=== PATIENT | female | born 1970 | race Caucasian/White ===

== ENCOUNTER → 2017-06-03 13:26 | Outpatient (CLI) | payer BC, SELFPAY | PROVIDERS: Family Provider Nurse Practitioner Family; PCP Nurse Practitioner Family; Visit Provider Nurse Practitioner Family | DX: G47.30 Sleep apnea, unspecified (principal); R09.02 Hypoxemia | CPT/HCPCS: 95811 ==

== ENCOUNTER 2020-05-30 05:58 | Emergency (ER) | payer BC, SELFPAY ==
[2020-05-30 06:08] VITALS: BP 169/91; PULSE 90; RESP 16; TEMP 35.8; O2SAT 100; BMI 42.0
[2020-05-30] MEDS: Ketorolac 15 MG/ML Vial IV (06:14)
[2020-05-30] MEDS: Ondansetron 4 MG/2 ML Vial IV (06:14)
[2020-05-30] MEDS: LORazepam 2 MG/ML Syringe 1 MG IV (06:17)
[2020-05-30] MEDS: Morphine 4 MG/ML Syringe IV (06:46)
--- NOTE | 2020-05-30 07:18 | ED.DCSUM_ITS ---
History of Present Illness Chief Complaint: Other, Pain/Inj Detail of Chief Complaint: Neck pain Informant: Patient Onset: Weeks - Approximately 1 week Context: Sudden Onset Timing: Continuous Quality: Pain Location: Posterior neck greater on right Current Severity: Moderate Maximum Severity: Severe Worsened by: Attempt to move head to right or left or flexion Relieved by: Nothing Associated Symptoms: No radicular pain, headache or paresthesias. Narrative: Patient 49-year-old woman who presents with bilateral posterior neck pain that started proxy 1 week ago. She states she may have slept in an odd position. Sh e has attempted ice, heat, anti-inflammatory with no relief. She reports movement of her head causes pain. She denies cardiac symptoms. She denies respiratory symptoms. There is no history of trauma. There is no neurovascular symptoms of the upper extremity. Prior similar symptoms: No Recent Illness/Hospitalization: No - Past Medical History (1) No significant past medical history Status: Acute Past Medical History - Allergies and Home Meds Allergies/Adverse Reactions: Allergies Penicillins Allergy (Verified 05/30/20 05:59) Other Primary Care Physician: Ankita Rosario [employer] TECHNICIAN, [employer] TECHNICIAN-C [Primary Care Provider] - Prior records reviewed: Yes Surgical History: noncontributory Lives: With Family Smoking Status: Heavy Smoker (>10/day) Drugs: None Review of Systems General: Denies: Chills, Fever, Malaise, Subjective, Sweats Eyes: Denies: Visual changes - bilaterally, Blurred Vision - bilaterally ENT: Denies: Bilateral ear pain, Rhinorrhea, Sore throat Cardiovascular: Denies: Chest pain, Palpitations Respiratory: Denies: Dyspnea, Cough, Dyspnea on exertion, Orthopnea, Paroxysmal nocturnal dyspnea Gastrointestinal: Denies: Nausea, Vomiting Musculoskeletal: Reports: Neck pain. Denies: Myalgias, Arthralgias, Back pain, Swelling, Extremity Pain Skin: Denies: Rash, Wounds Neurological: Denies: Headache, Weakness, Parasthesia, Numbness Hematologic: Denies: Easy bruising, Easy bleeding Physical Exam Vital Signs/Narrative: Vital Signs Temp Pulse Resp BP Pulse Ox 05/30/20 06:08 96.4 F L 90 16 169/91 H 100 Inital Vital Signs reviewed: Yes General: Well nourished, Well developed, Obese, Acute Distress - Appears uncomfortable. She walks looking straight ahead with limited head movement Head: Normocephalic, Atraumatic. Negative for: Trauma, Tenderness Eyes: Perrl, EOMI. Negative for: Pale conjunctiva, Scleral icterus ENT: No rhinorrhea, TM's clear Neck: Supple, No lymphadenopathy, No JVD, - - Pain to palpation posteriorly right greater than left. Having patient flex against any type of resistance or rotation causes her significant discomfort.. Negative for: Nontender Cardiovascular: Regular rate, Regular rhythm, No murmurs, Normal S1, Normal S2 Respiratory: No distress, CTA bilaterally Extremities: Nontender, No edema, - - Axillary, median, radial and ulnar function intact. Biceps, brachialis and triceps reflexes are 1-2+ and symmetric. 5/5 strength. Skin: Normal color, No rash, No Trauma. Negative for: Cyanosis, Diaphoresis, Jaundice Neurological: Alert, Oriented x3, Cranial nerves II-XII grossly intact, Normal Strength, Normal Sensation, Normal DTR, Normal Gait Psychological: Normal affect Diagnostic/Tx/Re-eval - Medical Decision Making Patient has torticollis. Patient declined morphine that was initially ordered. She also received 4 mg of Zofran and 50 mg of Toradol. She was agreeable to Ativan. She declined the morphine because she is never had morphine and concerned she will have an allergic reaction. Patient was informed 1 never has allergic reaction to exposure to the first time. Patient was reassessed at 0650 she reports little to no improvement. She is now willing to receive the 4 mg of morphine. Patient was reassessed at 0722. She reports marked improvement. Pain has decreased from a 9 to a 3. She states the pain is slightly worse when she coughs. Plan is to discharge with appropriate pain medicine and muscle re laxant. ED Disposition - Plan for ED Patient: Disposition: Home or Assisted Living Diagnosis: Torticollis, acute Instructions: Torticollis (Wry Neck) Prescriptions: Hydrocodone Bitart/Apap 5-325 [[place] 5MG-325MG] 1 tablet PO Q6H PRN PRN 3 Days #10 tablet PRN Reason: Pain Transmission Status: Received by [id number] Diazepam [Valium] 2 mg PO TID #10 tablet Transmission Status: Received by [id number] Referrals: Ankita Rosario NP, [employer] TECHNICIAN-C [Primary Care Provider] - 3-5 Days if not improving
[2020-05-30 08:08] VITALS: BP 129/66; PULSE 70; RESP 16; O2SAT 100
--- NOTE | 2020-05-30 08:09 | ED.RN ---
REVIEWED D/C INSTRUCTIONS, FOLLOW UP CARE, PRESCRIPTIONS, AND S/S THAT WOULD WARRANT A RETURN TO THE ED WITH PT. PT VERBALIZED AN UNDERSTANDING AND DENIES FURTHER QUESTIONS FOR THIS RN. PT SKIN P/W/D, RESP EVEN AND UNLABORED, PT A&O X 3, NO DISTRESS NOTED. PT AMBULATED OUT OF ED, GAIT STEADY.
== END 2020-05-30 08:10 | disposition home or self-care (01) ==
PROVIDERS: Emergency Provider Emergency Medicine; PCP Nurse Practitioner Family
DX: M43.6 Torticollis (principal); E66.9 Obesity, unspecified; F17.200 Nicotine dependence, unspecified, uncomplicated
CPT/HCPCS: 96374; 96375; 99283; A4216; J2405

== ENCOUNTER → 2020-07-04 08:12 | Outpatient (CLI) | payer BC, SELFPAY ==
[2020-07-04 09:14] LABS: Anion Gap 5 (5-15); BUN 10 mg/dL (7-18); BUN/Creat Ratio 14.3 RATIO (10-20); Calcium,Total 8.6 mg/dL (8.5-10.1); Chloride 107 mmol/L (98-107); Cholesterol 227 mg/dL (200); EST Glomerular Filtration Rate 94 mL/min (>60); Est Glom Filt Rate - Afr Amer 113 mL/min (>60); Glucose 98 mg/dL (74-106); High Density Lipoprotein 50 mg/dL; Potassium 3.9 mmol/L (3.5-5.1); Sodium Level 139 mmol/L (136-145); Triglycerides 203 mg/dL; Very Low Density Lipoprotein 41 mg/dL (5-40)
== END ==
PROVIDERS: PCP Nurse Practitioner Family; Referring Provider Nurse Practitioner Family; Visit Provider Nurse Practitioner Family
DX: M43.6 Torticollis (principal); Z13.220 Encounter for screening for lipoid disorders; Z13.1 Encounter for screening for diabetes mellitus
CPT/HCPCS: 36415; 80048; 80061

== ENCOUNTER 2020-10-15 06:15 | Emergency (ER) | payer BC, SELFPAY ==
[2020-10-15 06:17] VITALS: BP 187/86; PULSE 115; RESP 18; TEMP 37.1; O2SAT 98; BMI 41.5
--- NOTE | 2020-10-15 06:22 | EX.ED.DYSGE1 ---
HPI History of Present Illness Chief Complaint: Cellulitis Narrative Narrative: Patient presents with cellulitis on her right gutierrez. Started 2 days ago. Started small and slowly got bigger this concerned her. No home treatment. Current severity is mild. No history of trauma. Comes in for further evaluation. Denies IV drug use. [facility] Medical History Asthma heart PVC Shoulder pain Sleep apnea SOB (shortness of breath) Home Medications albuterol sulfate 90 mcg/actuation aerosol inhaler INHALATION 30 Days #9 08/08/17 [History Last Taken Unknown] lorazepam 0.5 mg tablet PO PRN PRN 5 Days #5 08/08/17 [History Last Taken Unknown] cephalexin 500 mg PO Q6 #40 cap 10/15/20 [Rx Last Taken Unknown] Allergy/AdvReac Type Severity Reaction Status Date / Time Penicillins Allergy Other Verified 10/15/20 06:16 Family History Other Diabetes Heart disease Hypertension Surgical History History of tubal ligation Hx of section Social History Smoking Status: Heavy Smoker (>10/day) alcohol intake: current alcohol intake frequency: a few times a month ROS ROS ED ROS Narrative ROS General: Denies fever, chills, sweats Eyes: Denies visual changes, blurred vision, double vision ENT: Denies ear pain, rhinorrhea, sore throat Cardiovascular: Denies chest pain, palpitations, heart racing Respiratory: Denies dyspnea, cough, sputum, dyspnea on exertion, orthopnea,PND GI: Denies abdominal pain, nausea, vomiting, diarrhea, constipation, melena : Denies dysuria, hematuria, frequency Musculoskeletal: Denies myalgias, arthralgias, neck pain, back pain Skin: See HPI Neuro: Denies headache, weakness, paresthesia Psych: Denies depression, anxiety Endo: Denies polyuria, polydipsia, polyphagia Heme: Denies easy bruising, easy bleeding, lymphadenopathy Allergy: Denies hives, swelling EXAM Physical Exam Narrative Exam Narrative: Vital signs reviewed General: Well-nourished well-developed Head: Normocephalic atraumatic Eyes: Pupils equal round and reactive to light extraocular movements intact ENT: TMs clear no hemotympanum no trauma Neck: Nontender full range of motion Cardiovascular: Regular rate rhythm no murmurs normal S1-S2 Respiratory: No distress clear to auscultation bilaterally chest nontender Abdomen: Soft nontender nondistended normal bowel sounds no masses Back: Nontender no CVA tenderness Extremities: Right anterior gutierrez redness and warmth and tenderness measuring 4 x 4 inches consistent with cellulitis. Neuro alert oriented cranial nerves II through XII intact normal strength sensation reflexes Const Vital Signs: 10/15/20 06:17 Temperature 98.7 F Temperature Source Oral Pulse Rate 115 H Respiratory Rate 18 Blood Pressure 187/86 H Blood Pressure Mean 119 Pulse Ox 98 Oxygen Delivery Method Room Air MDM MDM MDM Narrative Medical decision making narrative: Given oral Keflex for early cellulitis. I do not feel she needs IV treatment. We will follow-up as an outpatient. I do not feel this is MRSA. Will return if she worsens Discharge Plan Triage Chief Complaint: Cellulitis ED Provider: Jose Noonan Dx/Rx/DC Orders Clinical Impression: Cellulitis of leg Instructions: ED Cellulitis Prescriptions: New cephalexin 500 mg capsule 500 mg PO Q6 Qty: 40 RF: 0 No Action albuterol sulfate 90 mcg/actuation HFA aerosol inhaler INHALATION 30 Days Qty: 9 RF: 0 lorazepam 0.5 mg tablet PO PRN PRN (Reason: Anxiety) 5 Days Qty: 5 RF: 0 Primary Care Provider: Ankita Rosario NP Referrals: Ankita Rosario NP, [employer] ADMIN-C [Primary Care Provider] - Disposition Disposition: Home, Self Care
[2020-10-15] MEDS: Cephalexin 250 MG Capsule 500 MG PO (06:28)
[2020-10-15 06:32] VITALS: BP 162/80; PULSE 96; RESP 16; O2SAT 96
== END 2020-10-15 06:32 | disposition home or self-care (01) ==
LOC: ED 06:34
PROVIDERS: Emergency Provider Emergency Medicine; PCP Nurse Practitioner Family
DX: L03.115 Cellulitis of right lower limb (principal); F17.200 Nicotine dependence, unspecified, uncomplicated
CPT/HCPCS: 99283

== ENCOUNTER 2020-10-16 09:06 | Inpatient (IN) | payer BC, SELFPAY ==
[2020-10-15 06:17] VITALS: BMI 41.5
[2020-10-16] VITALS (7 sets, daily range): BP systolic 114–150; BP diastolic 66–82; PULSE 84–103; RESP 16–18; TEMP 36.6–37.9; O2SAT 97–100; BMI 40.7; BMI 40.8
--- NOTE | 2020-10-16 09:23 | EX.ED.DYSGE1 ---
HPI History of Present Illness Chief Complaint: Cellulitis Detail of Chief Complaint: Right lower leg cellulitis Informant: patient Onset/Context/Timing Onset: Days Context: Gradual Onset Timing: Continuous Current Severity: Mild Maximum Severity: Mild Associated Symptoms Associated Symptoms: Fever. Narrative Narrative: 50-year-old female history of asthma and sleep apnea. Reported penicillin allergy as a child unsure of the reaction. Started having cellulitis on Tuesday. Tuesday morning was seen in this emergency department. Was started on p.o. Keflex which she is taken about 4 or 5 dosages. States that the redness is gotten larger. She has swelling in the lymph nodes in the right groin. And has fever at home as high as 102. She has never had cellulitis before. She denies being diabetic. Prior similar symptoms: No Recent Illness/Hospitalization: No PFSH PFS Medical History Asthma heart PVC Shoulder pain Sleep apnea SOB (shortness of breath) Home Medications albuterol sulfate 90 mcg/actuation aerosol inhaler INHALATION 30 Days #9 08/08/17 [History Last Taken Unknown] lorazepam 0.5 mg tablet PO PRN PRN 5 Days #5 08/08/17 [History Last Taken Unknown] cephalexin 500 mg PO Q6 #40 cap 10/15/20 [Rx Last Taken Unknown] Allergy/AdvReac Type Severity Reaction Status Date / Time Penicillins Allergy Other Verified 10/16/20 09:09 Family History Other Diabetes Heart disease Hypertension Surgical History History of tubal ligation Hx of section Social History Smoking Status: Heavy Smoker (>10/day) alcohol intake: current alcohol intake frequency: a few times a month ROS ROS ED ROS Narrative Fever. Review of Systems ROS Unobtainable: Denies due to encephalopathy Constitutional Constitutional ED: Reports fever(s) Eyes Eyes: Denies change in vision ENT ENT ED: Denies ear pain or sore throat Cardiovascular Cardiovascular: Denies chest pain Respiratory/Chest Respiratory/Chest: Denies cough or dyspnea Gastrointestinal Gastrointestinal: Denies abdominal pain, diarrhea, nausea or vomiting Genitourinary Genitourinary ED: Denies dysuria or hematuria Musculoskeletal Musculoskeletal: Reports myalgias; Denies arthralgias Integumentary Reports rash Neurologic Neurologic: Denies headache(s) Psychiatric Psychiatric: Denies depression Endocrine Endocrinology: Denies polyuria Allergic/Immunologic Allergic/Immunologic ED: Denies urticaria EXAM Physical Exam Narrative Exam Narrative: White female no acute distress. Vital signs stable. Currently she is afebrile with a temperature 98. Blood pressure 150/82. She does not look septic or toxic. Lungs are clear. Heart regular rhythm no murmur. Rate about 100. Abdomen soft nontender. Her right lower gutierrez there is an area of cellulitis that has spread outside what was traced out the day before the emergency department. She also has swollen and tender lymph nodes in her right groin. Right hip, knee and ankle are nontender nonswollen. She has normal range of motion to her right lower extremity. Right foot is neurovascular intact with normal DP pulse. There is a rash on her right lateral foot that she believes may be the nidus. Const Vital Signs: 10/16/20 09:07 10/16/20 09:29 Temperature 98 F 98.0 F Temperature Source Temporal Temporal Pulse Rate 103 H 103 H Respiratory Rate 18 18 Blood Pressure 150/82 H 150/82 H Blood Pressure Mean 104 104 Pulse Ox 97 97 Oxygen Delivery Method Room Air Room Air Positive well nourished and well developed General Appearance ED: well developed HEENT Reports moist mucous membranes Negative for trauma or tenderness Eyes PERRL and EOMs intact bilaterally Neck no lymphadenopathy, supple and no JVD General: Negative for tenderness Chest Wall inspection of chest normal Resp normal respiratory effort and clear to auscultation bilaterally Effort and Inspection: Negative for pain with movement Auscultation: Negative for wheezes Cardio regular rate, regular rhythm, S1 normal heart sound, S2 normal heart sound and no murmurs GI normal to inspection, nondistended, normoactive bowel sounds, non-tender, non-distended and no masses Inspection: Negative for abdominal distention Auscultation: normoactive bowel sounds Palpation: soft; Negative for tender, guarding or rebound tenderness present Back/Spine no CVA tenderness General Back: Negative for CVA tenderness Cervical Spine: Negative for cervical spine tenderness Extremity normal to inspection Extremity Narrative: Except cellulitis right lower gutierrez. Outside the area marked off the day before. She also has inguinal lymphadenopathy on the right with tenderness. Neuro oriented x3 and CN's II-XII intact bilaterally Sensorium / Orientation: alert; Negative for lethargic or stuporous Motor Exam: strength 5/5 throughout Psych mental status grossly normal Skin Rashes: rashes noted MDM MDM MDM Narrative Medical decision making narrative: Patient with right lower extremity cellulitis started around Tuesday so about 3 days now. Seen the emergency department yesterday started on Keflex which she has had about 5 dosages of the oral medication. Cellulitis is getting worse with lymphangitic streaking and a fever at home of 102.7. Screening labs are being obtained. She will be started on IV clindamycin. She has a reported history of penicillin allergy with an unknown reaction as a child. I do think it was a reasonable decision yesterday to treat her as an outpatient I think now that she has had multiple dosages of the oral medication in, she is getting worse in spite of that and having other constitutional symptoms such as fever she warrants admission. Repeat exam the patient is doing well at 9:48 AM. Hospitalist is on page for admission. Lab Data Attestation: I reviewed the patient's lab results. Lab results narrative: CBC shows an elevated white count of 15.9. Normal hemoglobin. No bands. Electrolytes are unremarkable with a normal gap and creatinine. Glucose of 105. Labs: Laboratory Results - last 24 hr 10/16/20 10/16/20 09:30 09:30 WBC 15.9 H RBC 4.21 Hgb 13.4 Hct 40.0 MCV 95.0 MCH 31.8 MCHC 33.5 RDW Std Deviation 48.0 H RDW Coeff of Luther 13.7 Plt Count 205 MPV 9.7 Immature Gran % (Auto) 0.700 Neut % (Auto) 86.1 H Lymph % (Auto) 9.1 L Mellette % (Auto) 3.8 Eos % (Auto) 0.0 Baso % (Auto) 0.3 Absolute Neuts (auto) 13.7 H Absolute Lymphs (auto) 1.45 Nucleated RBC % 0 Sodium 135 L Potassium 3.6 Chloride 107 Carbon Dioxide 22.0 Anion Gap 6 BUN 9 Creatinine 0.85 Estim Creat Clear Calc 76.14 Est GFR (MDRD) Af Amer 91 Est GFR (MDRD) Non-Af 75 BUN/Creatinine Ratio 10.6 Glucose 105 Calcium 8.7 Discharge Plan Dx/Rx/DC Orders Clinical Impression: Cellulitis of leg, Lymphangitis of lower extremity Disposition Disposition: Acute Care Hospital [facility]
[2020-10-16 09:34] LABS: Absolute Lymphocyte Count 1.45 X10^3/uL (0.83-4.51); Absolute Neutrophil Count 13.7 X10^3/uL (2.0-7.7); Basophil# 0.04 X10^3/uL; Basophil% 0.3 % (0-1); Hemoglobin 13.4 g/dL (12.0-15.0); Lymphocyte # 1.45 X10^3/ul (0.83-4.51); Lymphocyte % 9.1 % (19-41); Mean Corp Hgb Conc 33.5 g/dL (32-36); Mean Corpuscular Hgb 31.8 pg (27.0-32.0); Mean Platelet Vol. 9.7 fl (6.2-12.0); Monocyte# 0.61 X10^3/uL; Monocyte% 3.8 % (0-10); NRBC Flagged by Analyzer 0 % (0-5); Neutrophil # 13.71 X10^3/uL (2.7-7.7); Neutrophil % 86.1 % (47-70); Platelet Count 205 K/mm3 (150-450); RBC Distribution Width CV 13.7 % (11.6-14.6); Red Blood Count 4.21 M/mm3 (4.2-5.4); White Blood Count 15.9 K/mm3 (4.4-11.0)
[2020-10-16 09:45] LABS: Anion Gap 6 (5-15); BUN 9 mg/dL (7-18); BUN/Creat Ratio 10.6 RATIO (10-20); Calcium,Total 8.7 mg/dL (8.5-10.1); Chloride 107 mmol/L (98-107); Creatinine, Serum 0.85 mg/dL (0.55-1.02); EST Glomerular Filtration Rate 75 mL/min (>60); Est Glom Filt Rate - Afr Amer 91 mL/min (>60); Estimated Creatinine Clearance 76.14 ml/min; Glucose 105 mg/dL (74-106); Potassium 3.6 mmol/L (3.5-5.1); Sodium Level 135 mmol/L (136-145)
--- NOTE | 2020-10-16 10:07 | NURSING ---
DR CRAWFORD WILL BE DOWN TO ADMIT PATIENT
--- NOTE | 2020-10-16 10:18 | NURSING ---
MED SURG OBS TERELETSKY LEG CELLULITIS, LYMPHANGITIS
[2020-10-16] MEDS: Acetaminophen 325 MG Tablet 650 MG PO ×2 (11:52→17:55)
[2020-10-16] MEDS: 0.9% Saline Lock 10 ML Syringe IV ×2 (12:24→17:56)
[2020-10-16] MEDS: Cefazolin 1 GM/50 ML BAG IV ×3 (12:24→23:52)
--- NOTE | 2020-10-16 12:38 | PCM.HP.STD ---
Documented by User: Tasia Laureano NP, MOTOR ASSEMBLY SUPERVISOR-C 10/16/20 12:50 HPI - General General Date of Admission: 10/16/20 Chief Complaint: Worsening right lower extremity redness and warmth, fever HPI Rachael REED, is a 50 F who presents to the emergency room due to right lower extremity redness, warmth, discomfort as well as fever. Patient states she noticed redness of her right gutierrez area about 3 days ago. She went to ER yesterday due to increasing redness and was started on Keflex. She took Keflex as prescribed yesterday and redness continued to worsen. She reports fever of 102F at home. Denies injury to right lower extremity. Denies nausea, vomiting. Describes right groin tenderness however no skin abnormalities in that area. She denies wound or drainage from right lower extremity. She has a past medical history of asthma, anxiety, tobacco dependence, obesity. [facility] Medical History Anxiety Asthma heart PVC Shoulder pain Sleep apnea Smoker SOB (shortness of breath) Home Medications albuterol sulfate 90 mcg/actuation aerosol inhaler 2 puff INHALATION Q4H PRN PRN 30 Days #9 08/08/17 [History Last Taken Unknown] lorazepam 0.5 mg tablet 0.25 mg PO DAILY PRN PRN 5 Days #5 08/08/17 [History Last Taken Unknown] cephalexin 500 mg PO Q6 #40 cap 10/15/20 [Rx Last Taken 10/16/20 07:30] calcium carbonate [Tums 500] 500 mg PO BID PRN PRN 10/16/20 [History Last Taken Unknown] Allergy/AdvReac Type Severity Reaction Status Date / Time Penicillins Allergy Other, Verified 10/16/20 11:46 passed out as a child when she received a shot Family History (Updated 10/16/20 @ 12:42 by Tasia Laureano NP, MOTOR ASSEMBLY SUPERVISOR-C) Mother Seizures Father No history of cardiac disorder Other Diabetes Heart disease Hypertension Surgical History History of tubal ligation Hx of section Social History (Updated 10/16/20 @ 12:43 by Tasia Laureano NP, MOTOR ASSEMBLY SUPERVISOR-C) Smoking Status: Heavy Smoker (>10/day) alcohol intake: current alcohol intake frequency: a few times a month substance use type: does not use ROS Constitutional Constitutional: Reports fever(s); Denies change in weight, chills, fatigue or weakness Cardiovascular Cardiovascular: Denies chest pain, edema, lightheadedness, palpitations or syncope Respiratory/Chest Respiratory/Chest: Denies cough, dyspnea, productive cough, shortness of breath at rest, shortness of breath with exertion or wheezing Gastrointestinal Gastrointestinal: Denies abdominal pain, constipation, diarrhea, nausea or vomiting Genitourinary Genitourinary: Denies burning urination, difficulty urinating, dysuria, hematuria, urinary frequency, urinary incontinence or urinary urgency Musculoskeletal Musculoskeletal: Denies back pain, joint pain or muscle weakness Integumentary Integumentary: Reports other Details: RLE redness, warmth, discomfort Neurologic Neurologic: Denies abnormal speech, confusion, dizziness, focal weakness, numbness, paresthesias, seizure-like activity or syncope Psychiatric Psychiatric: Denies anxiety or depression Hematologic/Lymphatic Hematologic/Lymphatic: Denies anemia, easy bleeding or easy bruising Allergic/Immunologic Allergic/Immunologic: Denies hives or asthma Vital Signs Vital Signs Vital Signs: 10/16/20 09:07 10/16/20 09:29 10/16/20 10:14 Temperature 98 F 98.0 F 98.4 F Temperature Source Temporal Temporal Oral Pulse Rate 103 H 103 H 86 Respiratory Rate 18 18 17 Blood Pressure 150/82 H 150/82 H 126/81 H Blood Pressure Mean 104 104 96 Blood Pressure Source Blood Pressure Position Blood Pressure Location Pulse Ox 97 97 99 Oxygen Delivery Method Room Air Room Air 10/16/20 10:17 10/16/20 11:42 Temperature 98.4 F 98.9 F Temperature Source Oral Oral Pulse Rate 84 87 Respiratory Rate 16 16 Blood Pressure 126/81 H 114/67 Blood Pressure Mean 96 82 Blood Pressure Source Monitor Blood Pressure Position Semi-Fowlers Blood Pressure Location Left Arm Pulse Ox 99 100 Oxygen Delivery Method Room Air Room Air Weight Weight: 260 lb 9.382 oz Body Mass Index (BMI) 40.8 Physical Exam Const alert, oriented x3 and no apparent distress Orientation / Consciousness: awake, oriented to person, oriented to place and oriented to time HEENT normocephalic and moist oral mucous membranes Eyes PERRL, EOMs intact bilaterally and conjunctivae normal Neck no lymphadenopathy Resp normal respiratory effort and clear to auscultation bilaterally Cardio regular rate, regular rhythm and no murmurs Peripheral Pulses: pulses 2+ throughout GI normal to inspection, nondistended, normoactive bowel sounds, non-tender and non-distended Extremity normal to inspection Skin Skin Narrative: Right lower extremity erythema with warmth. No open wounds noted. Skin marked. Lesions: no lesions Rashes: no rashes Trauma: no lacerations or abrasions Neuro CN's II-XII intact bilaterally, no focal motor deficits, no sensory deficits noted and deep tendon reflexes 2+ bilaterally Psych mental status grossly normal and affect normal Results Lab / Micro Data Result Diagrams: 10/16/20 09:30 10/16/20 09:30 Labs: Laboratory Results - last 24 hr 10/16/20 10/16/20 09:30 09:30 WBC 15.9 H RBC 4.21 Hgb 13.4 Hct 40.0 MCV 95.0 MCH 31.8 MCHC 33.5 RDW Std Deviation 48.0 H RDW Coeff of Luther 13.7 Plt Count 205 MPV 9.7 Immature Gran % (Auto) 0.700 Neut % (Auto) 86.1 H Lymph % (Auto) 9.1 L [place] % (Auto) 3.8 Eos % (Auto) 0.0 Baso % (Auto) 0.3 Absolute Neuts (auto) 13.7 H Absolute Lymphs (auto) 1.45 Nucleated RBC % 0 Sodium 135 L Potassium 3.6 Chloride 107 Carbon Dioxide 22.0 Anion Gap 6 BUN 9 Creatinine 0.85 Estim Creat Clear Calc 76.14 Est GFR (MDRD) Af Amer 91 Est GFR (MDRD) Non-Af 75 BUN/Creatinine Ratio 10.6 Glucose 105 Calcium 8.7 Assessment & Plan Assessment/Plan (1) Cellulitis of leg: PLAN: 1. Right lower extremity cellulitis: on Kelflex X1 day with worsening of symptoms. IV cefazolin. Area marked. Elevate RLE. 2. Anxiety-on as needed lorazepam. 3. GERD-uses as needed Tums 1-2 times per week. 4. Mild intermittent asthma-as needed albuterol aerosol. DVT prophylaxis- low risk, not indicated This patient was seen by ANTIONETTE Cunningham under the supervision of Dr. Elizondo. Documented by User: Dr. Luis Elizondo, 10/16/20 16:58 HPI - General General Date of Admission: 10/16/20 [facility] Medical History Anxiety Asthma heart PVC Shoulder pain Sleep apnea Smoker SOB (shortness of breath) Home Medications albuterol sulfate 90 mcg/actuation aerosol inhaler 2 puff INHALATION Q4H PRN PRN 30 Days #9 08/08/17 [History Last Taken Unknown] lorazepam 0.5 mg tablet 0.25 mg PO DAILY PRN PRN 5 Days #5 08/08/17 [History Last Taken Unknown] cephalexin 500 mg PO Q6 #40 cap 10/15/20 [Rx Last Taken 10/16/20 07:30] calcium carbonate [Tums 500] 500 mg PO BID PRN PRN 10/16/20 [History Last Taken Unknown] Allergy/AdvReac Type Severity Reaction Status Date / Time Penicillins Allergy Other, Verified 10/16/20 11:46 passed out as a child when she received a shot Family History (Updated 10/16/20 @ 12:42 by Tasia Laureano NP, MOTOR ASSEMBLY SUPERVISOR-C) Mother Seizures Father No history of cardiac disorder Other Diabetes Heart disease Hypertension Surgical History History of tubal ligation Hx of section Social History (Updated 10/16/20 @ 12:43 by Tasia Laureano NP, MOTOR ASSEMBLY SUPERVISOR-C) Smoking Status: Heavy Smoker (>10/day) alcohol intake: current alcohol intake frequency: a few times a month substance use type: does not use Results Lab / Micro Data Result Diagrams: 10/16/20 09:30 10/16/20 09:30 Charges/Coding Addendum Addendum: Patient was seen and examined independently of Tasia Laureano, she came to the emergency room today at [facility] with complaints of increased redness and pain over an area on the lower part of her right leg, she was taking oral antibiotics as prescribed for cellulitis in this area but over the last 24 hours, she ran a temperature at home and the area became more red and tender and she came to the ER for evaluation. On examination she appeared in good health and spirits, she does not appear to be in any distress. Vital signs as documented. Skin-there is a reddened indurated area approximately 6 to 7 cm in length by 3 to 4 cm in width over the lateral aspect the patient's right lower leg, there is no streaking noted of the area. Neck without JVD, thyroid appears normal, trachea is midline, neck is supple. Lungs clear, normal air movement was noted. Heart exam notable for regular rhythm, normal sounds and absence of murmurs, rubs or gallops. Abdomen unremarkable and without evidence of organomegaly, masses, or abdominal aortic enlargement, bowel sounds are present in all 4 quadrants, no abdominal tenderness was noted. Extremities nonedematous, no cyanosis was noted, no clubbing was noted, there is an area of redness as described previously over the right lower leg over its lateral aspect. Neuro: Cranial nerves II through XII are grossly intact, no focal motor deficits were noted, sensation to light touch and pinprick is intact, motor exam 5/5 throughout. Psych: Patient is alert and oriented x3, she does not appear anxious or depressed, she does not appear agitated. Patient's white blood cell count was elevated today in the emergency room, she was given IV clindamycin by the emergency room physician, patient will be placed in observation status for IV antibiotics and evaluated tomorrow. I have reviewed Tasia Laureano's history and physical including her medical assessment and plan of care and endorse it. Visit Charges OBSV E&M: 92177 Initial observation care L3
[2020-10-16] MEDS: Calcium Carbonate 500 MG Tablet PO (20:43)
[2020-10-17] MEDS: Acetaminophen 325 MG Tablet 650 MG PO ×2 (02:06→12:40)
[2020-10-17 02:14] VITALS: BP 128/74; PULSE 83; RESP 17; TEMP 36.9; O2SAT 98
[2020-10-17] MEDS: Cefazolin 1 GM/50 ML BAG IV ×4 (05:22→23:20)
[2020-10-17 06:22] LABS: Absolute Lymphocyte Count 1.77 X10^3/uL (0.83-4.51); Basophil# 0.03 X10^3/uL; Basophil% 0.4 % (0-1); Eosinophil# 0.05 X10^3/uL; Eosinophils% 0.7 % (0-5); Hematocrit 38.2 % (37-47); Hemoglobin 12.7 g/dL (12.0-15.0); Lymphocyte # 1.77 X10^3/ul (0.83-4.51); Lymphocyte % 23.9 % (19-41); Mean Corp Hgb Conc 33.2 g/dL (32-36); Mean Corpuscular Hgb 31.5 pg (27.0-32.0); Mean Corpuscular Volume 94.8 fL (81-99); Mean Platelet Vol. 9.8 fl (6.2-12.0); Monocyte% 6.7 % (0-10); NRBC Flagged by Analyzer 0 % (0-5); Neutrophil # 5.02 X10^3/uL (2.7-7.7); Neutrophil % 67.6 % (47-70); Platelet Count 202 K/mm3 (150-450); RBC Distribution Width CV 13.6 % (11.6-14.6); RBC Distribution Width SD 48.4 fl (35.1-43.9); Red Blood Count 4.03 M/mm3 (4.2-5.4); White Blood Count 7.4 K/mm3 (4.4-11.0)
[2020-10-17 09:28] VITALS: BP 124/87; PULSE 77; RESP 18; TEMP 36.7; O2SAT 97
--- NOTE | 2020-10-17 09:34 | PCM.PN.HOSP ---
Documented by User: Tasia Laureano NP, TRANSFILL TECHNICIAN-C 10/17/20 09:39 Subjective Subjective Patient seen and examined. Complains of burning sensation right lower extremity. Denies fever, chills. Patient does not feel redness is significantly improved. Objective Data Objective Data Vital Signs: Vital Signs Temp Pulse Resp BP Pulse Ox 98.1 F 77 18 124/87 H 97 10/17/20 09:28 10/17/20 09:28 10/17/20 09:28 10/17/20 09:28 10/17/20 09:28 Oxygen Delivery Method Room Air Weight: 260 lb 9.382 oz Body Mass Index (BMI) 40.8 Intake & Output: Intake and Output for Last 24 Hours 10/15/20 10/16/20 10/17/20 23:59 23:59 23:59 Intake Total 1270.50 / 1270.50 575 / 575 Balance 1270.50 / 1270.50 575 / 575 Lab / Micro Data Result Diagrams: 10/17/20 06:03 10/16/20 09:30 Labs: Laboratory Results - last 24 hr 10/16/20 10/16/20 10/17/20 09:30 09:30 06:03 WBC 15.9 H 7.4 RBC 4.21 4.03 L Hgb 13.4 12.7 Hct 40.0 38.2 MCV 95.0 94.8 MCH 31.8 31.5 MCHC 33.5 33.2 RDW Std Deviation 48.0 H 48.4 H RDW Coeff of Luther 13.7 13.6 Plt Count 205 202 MPV 9.7 9.8 Immature Gran % (Auto) 0.700 0.700 Neut % (Auto) 86.1 H 67.6 Lymph % (Auto) 9.1 L 23.9 [place] % (Auto) 3.8 6.7 Eos % (Auto) 0.0 0.7 Baso % (Auto) 0.3 0.4 Absolute Neuts (auto) 13.7 H 5.0 Absolute Lymphs (auto) 1.45 1.77 Nucleated RBC % 0 0 Sodium 135 L Potassium 3.6 Chloride 107 Carbon Dioxide 22.0 Anion Gap 6 BUN 9 Creatinine 0.85 Estim Creat Clear Calc 76.14 Est GFR (MDRD) Af Amer 91 Est GFR (MDRD) Non-Af 75 BUN/Creatinine Ratio 10.6 Glucose 105 Calcium 8.7 Physical Exam Const alert, oriented x3 and no apparent distress Orientation / Consciousness: awake, oriented to person, oriented to place and oriented to time HEENT normocephalic and moist oral mucous membranes Eyes PERRL, EOMs intact bilaterally and conjunctivae normal Neck no lymphadenopathy Resp normal respiratory effort and clear to auscultation bilaterally Cardio regular rate, regular rhythm and no murmurs Peripheral Pulses: pulses 2+ throughout GI normal to inspection, nondistended, normoactive bowel sounds, non-tender and non-distended Extremity normal to inspection Skin no rashes or lesions noted Skin Narrative: Right lower extremity erythema, warmth. Area marked. Appears stable. Lesions: no lesions Rashes: no rashes Trauma: no lacerations or abrasions Neuro CN's II-XII intact bilaterally, no focal motor deficits, no sensory deficits noted and deep tendon reflexes 2+ bilaterally Psych mental status grossly normal and affect normal Assessment & Plan Assessment/Plan (1) Cellulitis of leg: PLAN: 1. Right lower extremity cellulitis: on Kelflex X1 day prior to admission with worsening of symptoms. IV cefazolin. Area marked. Elevate RLE. 2. Anxiety-on as needed lorazepam. 3. GERD-uses as needed Tums 1-2 times per week. 4. Mild intermittent asthma-as needed albuterol aerosol. DVT prophylaxis- low risk, not indicated This patient was seen by Tasia Laureano NP-Chantal under the supervision of Dr. Elizondo. Documented by User: Dr. Luis Elizondo, 10/17/20 18:20 Objective Data Lab / Micro Data Result Diagrams: 10/17/20 06:03 10/16/20 09:30 Charges/Coding Addendum Addendum: Patient was seen and examined today independently of Tasia Laureano, her reddened right lower leg area does not look improved today, I have requested consultation from infectious diseases who added Flagyl and vancomycin to her antibiotic coverage. Wound care nurse saw the patient today and removed part of an eschar on the patient's right lateral foot area, PCR was done of this area which was positive for staph but not MRSA. I talked briefly with infectious diseases late this afternoon and they stated that they recommended we wait until the culture results are back to send the patient home on oral antibiotics. On examination she appeared in good health and spirits, she does not appear to be in any distress. Vital signs as documented. Skin warm and dry, there is a reddened area approximately 6 to 7 cm in length by 4 cm in diameter over the patient's right lower lateral leg, this area is warm to the touch and tender to palpation. Neck without JVD, thyroid appears normal, trachea is midline, neck is supple. Lungs clear, normal air movement was noted. Heart exam notable for regular rhythm, normal sounds and absence of murmurs, rubs or gallops. Abdomen unremarkable and without evidence of organomegaly, masses, or abdominal aortic enlargement, bowel sounds are present in all 4 quadrants, no abdominal tenderness was noted. Extremities there is edema noted around an area of rash over the patient's right lower leg, no cyanosis was noted, no clubbing was noted. Neuro: Cranial nerves II through XII are grossly intact, no focal motor deficits were noted, sensation to light touch and pinprick is intact, motor exam 5/5 throughout. Psych: Patient is alert and oriented x3, she does not appear anxious or depressed, she does not appear agitated. I have reviewed Tasia Laureano's progress note including her medical assessment and plan of care and endorse it. Visit Charges Inpatient E&M: 54834 Init Hosp L3
[2020-10-17 10:34] VITALS: PULSE 77; RESP 20
[2020-10-17] MEDS: Albuterol 2.5 MG/3 ML VIAL.NEB. INHALATION (10:34)
--- NOTE | 2020-10-17 10:56 | NURSING ---
wound photo: right lateral foot
--- NOTE | 2020-10-17 10:58 | NURSING ---
skin photo: right gutierrez
[2020-10-17] MEDS: 0.9% Saline Lock 10 ML Syringe IV ×4 (12:40→23:20)
--- NOTE | 2020-10-17 13:41 | CON.PCM.ID_ITS ---
Assessment & Plan Assessment/Plan (1) Cellulitis of leg: PLAN: sepsis (tachycardia/leukocytosis on presentation) due to RLE cellulitis and R foot abscess. Recent exposure to esquivel water, showing some improvement already. Wound cx pending. Will add vanc and flagyl given purulence and exposure history. If she worsens, would consider pseudomonal coverage by changing cefazolin to cefepime. Encouraged her to get covid vaccine, reviewed risks and benefits. Will follow, thank you, d/w Dr. Elizondo and wound care. HPI Consult Data Date of Consult: 10/17/20 HPI Narrative HPI Narrative: MARY LOU REED, is a 50 F with minimal PMH, presented with several days of fever, R gutierrez redness/pain/swelling. Also some pain in R inguinal area. Had poison angus several weeks ago on R foot, developed several blisters. Foot since then has been rubbed by work shoe. A week ago, camping and put feet in a esquivel. Came to ED now, admitted on cefazolin. Fever better, still with leg redness. Seen by wound care, small abscess on R lateral foot unroofed. Has not gotten covid shot. Full ROS performed and neg except as noted above. [facility] Medical History Anxiety Asthma heart PVC Shoulder pain Sleep apnea Smoker SOB (shortness of breath) Home Medications albuterol sulfate 90 mcg/actuation aerosol inhaler 2 puff INHALATION Q4H PRN PRN 30 Days #9 08/08/17 [History Last Taken Unknown] lorazepam 0.5 mg tablet 0.25 mg PO DAILY PRN PRN 5 Days #5 08/08/17 [History Last Taken Unknown] cephalexin 500 mg PO Q6 #40 cap 10/15/20 [Rx Last Taken 10/16/20 07:30] calcium carbonate [Tums 500] 500 mg PO BID PRN PRN 10/16/20 [History Last Taken Unknown] Allergy/AdvReac Type Severity Reaction Status Date / Time Penicillins Allergy Other, Verified 10/16/20 11:46 passed out as a child when she received a shot Family History (Updated 10/16/20 @ 12:42 by Tasia Laureano PELLET MACHINE OPERATOR, PELLET MACHINE OPERATOR-C) Mother Seizures Father No history of cardiac disorder Other Diabetes Heart disease Hypertension Surgical History (Reviewed 10/16/20 @ 12:42 by Tasia Laureano PELLET MACHINE OPERATOR, PELLET MACHINE OPERATOR-C) History of tubal ligation Hx of section Social History (Updated 10/16/20 @ 12:43 by Tasia Laureano PELLET MACHINE OPERATOR, PELLET MACHINE OPERATOR-C) Smoking Status: Heavy Smoker (>10/day) alcohol intake: current alcohol intake frequency: a few times a month substance use type: does not use Physical Exam Const alert and no apparent distress General Appearance: cooperative HEENT normocephalic and head/scalp atraumatic Eyes PERRL and EOMs intact bilaterally Neck supple and No nodes Resp normal air movement and clear to auscultation bilaterally Cardio regular rate and regular rhythm GI normal to inspection, nondistended, normoactive bowel sounds Extremity no clubbing, cyanosis or edema Skin Skin Narrative: reviewed photos RLE Neuro CN's II-XII intact bilaterally Lab / Micro Data Result Diagrams: 10/17/20 06:03 10/16/20 09:30 Labs: Laboratory Results - last 24 hr 10/17/20 06:03 WBC 7.4 RBC 4.03 L Hgb 12.7 Hct 38.2 MCV 94.8 MCH 31.5 MCHC 33.2 RDW Std Deviation 48.4 H RDW Coeff of Luther 13.6 Plt Count 202 MPV 9.8 Immature Gran % (Auto) 0.700 Neut % (Auto) 67.6 Lymph % (Auto) 23.9 [place] % (Auto) 6.7 Eos % (Auto) 0.7 Baso % (Auto) 0.4 Absolute Neuts (auto) 5.0 Absolute Lymphs (auto) 1.77 Nucleated RBC % 0
[2020-10-17 14:19] LABS: M R Staph aureus DNA By PCR Negative (Negative); Probe Check PASS; Specimen Processing Control PASS; Staph aureus DNA By PCR POSITIVE (Negative)
[2020-10-17] MEDS: metroNIDAZOLE 500 MG Tablet PO ×2 (14:50→17:12)
[2020-10-17 14:53] VITALS: BP 160/87; PULSE 80; RESP 18; TEMP 36.6; O2SAT 97
--- NOTE | 2020-10-17 14:59 | PCM.RX.CS ---
Consult Pharmacy has been consulted to manage selected antiobiotic: Vancomycin Type of Consult: New start Suspected Infection: Skin/Soft tissue Labs: Sodium 135 mmol/L (136-145) L 10/16/20 09:30 Potassium 3.6 mmol/L (3.5-5.1) 10/16/20 09:30 Chloride 107 mmol/L (98-107) 10/16/20 09:30 Carbon Dioxide 22.0 mmol/L (21.0-32.0) 10/16/20 09:30 Anion Gap 6 (5-15) 10/16/20 09:30 BUN 9 mg/dL (7-18) 10/16/20 09:30 Creatinine 0.85 mg/dL (0.55-1.02) 10/16/20 09:30 Est GFR (MDRD) Af Amer 91 mL/min (>60) 10/16/20 09:30 Est GFR (MDRD) Non-Af 75 mL/min (>60) 10/16/20 09:30 BUN/Creatinine Ratio 10.6 RATIO (10-20) 10/16/20 09:30 Glucose 105 mg/dL (74-106) 10/16/20 09:30 Weight used for dosin kg Goal Trough: 15-20 mcg/mL Pharmacy Plan for Drug Dosing: NEW START IV VANCOMYCIN Consulting Physician: Carmen Indication: Cellulitis Goal Trough: 15-20 SrCr: 0.85 CrCl: 104 (based off an adjusted body weight of 84kg) Comments: pt to receive a 25mg/kg x1 loading dose of Vancomycin 2000mg on 10/17/20 at 1500 Vancomcyin Dose: based off of pts age, weight, and renal function, recommend an initial dose of Vancomycin 1750mg q12h starting 10/18/20 at 0300. Trough to be drawn before the 4th total dose. (dose was calculated using Clinical Pharmacology) Pending Level: 10/19/20 at 0230 Pharmacy Service will continue to monitor and adjust dosing as required. Follow-Up Labs: Trough Vancomycin - 10/19/20 at 0230
[2020-10-17 17:19] VITALS: BP 151/89; PULSE 78; RESP 18; TEMP 37.2; O2SAT 97
[2020-10-17 20:03] VITALS: BP 137/79; PULSE 82; RESP 17; TEMP 36.9; O2SAT 100
[2020-10-18 02:06] VITALS: BP 121/67; PULSE 64; RESP 15; TEMP 36.4; O2SAT 95
[2020-10-18] MEDS: Cefazolin 1 GM/50 ML BAG IV ×2 (06:06→11:44)
[2020-10-18] MEDS: Albuterol 2.5 MG/3 ML VIAL.NEB. INHALATION (07:20)
[2020-10-18 07:24] VITALS: PULSE 77; RESP 16
[2020-10-18 07:46] VITALS: BP 123/55; PULSE 78; PULSE 80; RESP 20; TEMP 36.7; O2SAT 97
[2020-10-18] MEDS: metroNIDAZOLE 500 MG Tablet PO ×2 (07:55→11:44)
--- NOTE | 2020-10-18 11:05 | CASEMGMT ---
BRANDON TINOCO assessment: Face to Face with patient for initial transition planning/care coordination assessment. BRANDON TINOCO introduced self and role at [facility], pt voices understanding and consents to assessment. Pt is sitting up in chair in no distress. Pt is A/Ox4 and answers all questions appropriately. Care providers, pharmacy, and demographics verified/updated. Presentation: Seen for cellulitis yesterday, now worsening of sx's Admitting dx: Cellulitis PCP: Abraham Specialists: None Preferred Pharmacy: [facility] Insurance: [employer] Prescription Benefit: [employer] Living Will/HPOA: Pt states does not have LW/HPOA, but would like AD info and Gillian THOMAS aware, voices understanding. LNOK: caryl Luna Living Arrangements: Pt states lives with caryl in mobile home with 4 steps in and states no concerns at home. Pt states is independent with ADL's. Transportation: Pt states drives self and states no transportation concerns. DME/HHC: Pt states has a bipap thru [employer] and no need for any further DME. Pt states no hx of SNF or HHC in the past. Pt states no concerns with going home at time of discharge. Pt works multimedia specialist. Pt states smokes 1/2-1 pack cigarettes daily and occasionally drinks ETOH. Pt states no further concerns/needs. CM to follow for any further discharge planning/needs. Advised pt to ask for CM if any further questions/concerns/needs arise, voices understanding. Pt Goal: Home Plan: [place] BRANDON TINOCO
--- NOTE | 2020-10-18 11:33 | PCM.DC ---
Discharge Instructions Diet Discharge Diet: No restrictions Activity Discharge Activity: Return to Normal Activity Dressing / Incision Call your doctor if your incision/area has: Continuous Slow Oozing, Sudden Increased Bleeding, Increased Pain/ Swelling, Increased Redness, Foul Smelling Discharge and Swelling at the incision site Call your doctor if you observe: Fever of 101 or Higher, Shortness of breath, Dizziness and Chest pain Follow Up Care Test Results: Test results from this visit will be discussed in further detail at your follow-up appointment, if applicable. Discharge Plan Admission Admit Date/Time: 10/16/20 14:00 Primary Reason for Your Visit: Right leg cellulitis Attending Provider: Luis Elizondo Primary Care Provider: Ankita Rosario NP Consulting Providers: Shree Morales Discharge Orders/Prescriptions Prescriptions: New metronidazole 500 mg Tablet 500 mg PO TIDCM 7 Days Qty: 21 RF: 0 doxycycline hyclate 100 mg capsule 100 mg PO BID Qty: 14 RF: 0 Continued albuterol sulfate 90 mcg/actuation HFA aerosol inhaler 2 puff INHALATION Q4H PRN PRN (Reason: sob/wheezing) 30 Days Qty: 9 RF: 0 lorazepam 0.5 mg tablet 0.25 mg PO DAILY PRN PRN (Reason: Anxiety) 5 Days Qty: 5 RF: 0 calcium carbonate 500 mg calcium (1,250 mg) Tablet,Chewable 500 mg PO BID PRN PRN (Reason: Heartburn) RF: 0 Discontinued cephalexin 500 mg capsule 500 mg PO Q6 Qty: 40 RF: 0 Referrals / Follow Up: Ankita Rosario NP, SETTER COLD ROLLING MACHINE-C [Primary Care Provider] - In 1 Week Disposition Disposition (needs filled in before D/C Order can be placed): Home, Self Care
--- NOTE | 2020-10-18 11:40 | PCM.DC.SUM ---
Documented by User: Tasia Laureano NP, LOAN SERVICE OFFICER-C 10/18/20 11:43 Providers Date of Admission: 10/16/20 Date of Discharge: 10/18/20 Primary Care Physician: ANTIONETTE Spencer Consultations 10/17/20 09:39 Consult: Onc/Wound/stone rougher Routine Comment: Pt wears steel toe boots at work- concerned for Reason for Consult:: right lateral foot wound Comments:: concerned for recurrent injury/infection to that area 10/17/20 12:33 Consult: Infectious Disease Routine Consulting Provider: Shree Morales Reason for Consult: cellulitis EMERGENT Consult: No MD Notified: Yes Date Notified: 10/17/20 Time Notified: 12:33 Method of Notification: Verbal Reason For Visit: CELLULITIS Diagnosis Discharge Diagnosis (1) Cellulitis of leg: Status: Acute Code(s): L03.119 - Cellulitis of unspecified part of limb Medications at Discharge Home Medications albuterol sulfate 90 mcg/actuation aerosol inhaler 2 puff INHALATION Q4H PRN PRN 30 Days #9 08/08/17 lorazepam 0.5 mg tablet 0.25 mg PO DAILY PRN PRN 5 Days #5 08/08/17 calcium carbonate 500 mg PO BID PRN PRN 10/16/20 doxycycline hyclate 100 mg PO BID #14 cap 10/18/20 fluconazole [Diflucan] 100 mg PO DAILY #5 tab 10/18/20 metronidazole 500 mg PO TIDCM 7 Days #21 tab 10/18/20 Hospital Course Operations None Procedures None Summary of Care Provided Minutes Spent on Discharge: 35 Hospital Course: Patient is a 50-year-old female admitted 10/16/2020 due to right lower extremity cellulitis. 1. Right lower extremity cellulitis with right foot abscess: on Kelflex X1 day prior to admission with worsening of symptoms. ID consulted during admission. MSSA positive from wound culture, MRSA negative. Cultures pending at discharge. Patient requesting discharge home. Afebrile, no leukocytosis. Right lower extremity cellulitis improving. Discharged on Doxy and Flagyl. We will follow up on culture and notify patient of any medication adjustments. Follow-up with PCP within 1 week. 2. Anxiety-on as needed lorazepam. 3. GERD-uses as needed Tums 1-2 times per week. 4. Mild intermittent asthma-as needed albuterol aerosol. Physical Exam Const alert, oriented x3 and no apparent distress Orientation / Consciousness: awake, oriented to person, oriented to place and oriented to time HEENT normocephalic and moist oral mucous membranes Eyes PERRL, EOMs intact bilaterally and conjunctivae normal Neck no lymphadenopathy Resp normal respiratory effort and clear to auscultation bilaterally Cardio regular rate, regular rhythm and no murmurs Peripheral Pulses: pulses 2+ throughout GI normal to inspection, nondistended, normoactive bowel sounds, non-tender and non-distended Extremity normal to inspection Skin no rashes or lesions noted Skin Narrative: Right lower extremity erythema, warmth. Area marked. Appears stable. Lesions: no lesions Rashes: no rashes Trauma: no lacerations or abrasions Neuro CN's II-XII intact bilaterally, no focal motor deficits, no sensory deficits noted and deep tendon reflexes 2+ bilaterally Psych mental status grossly normal and affect normal Patient seen and examined prior to discharge. Physical assessment as noted above. Patient is stable for discharge with follow up recommendations as noted above. This patient was seen by ANTIONETTE Cunningham under the supervision of Dr. Elizondo. Weight / BMI Weight Weight: 260 lb 9.382 oz Body Mass Index (BMI) 40.8 ABG / Lab / Microbiology Data Result Diagrams: 10/17/20 06:03 10/16/20 09:30 Laboratory: Laboratory Results - last 24 hr 10/17/20 10:35 S.aureus Protein A PCR POSITIVE H MRSA (PCR) Negative Microbiology: Microbiology 10/17/20 10:35 Gram Stain - Final Wound - Right Foot Microbiology 10/17/20 10:35 Wound - Right Foot Gram Stain - Final D/C Instructions Discharge Diet: No restrictions Call your doctor if your incision/area has: Continuous Slow Oozing, Sudden Increased Bleeding, Increased Pain/ Swelling, Increased Redness, Foul Smelling Discharge and Swelling at the incision site Call your doctor if you observe: Fever of 101 or Higher, Shortness of breath, Dizziness and Chest pain Meaningful Use Info Meaningful Use Diagnoses (Choose all that apply): None applicable Discharge Plan Admission Admit Date/Time: 10/16/20 14:00 Primary Reason for Your Visit: Right leg cellulitis Attending Provider: Luis Elizondo Primary Care Provider: [place],Ankita LOAN SERVICE OFFICER Consulting Providers: Carmen,Shree Instructions Forms: Work / School Excuse Discharge Orders/Prescriptions Prescriptions: New metronidazole 500 mg Tablet 500 mg PO TIDCM 7 Days Qty: 21 RF: 0 doxycycline hyclate 100 mg capsule 100 mg PO BID Qty: 14 RF: 0 fluconazole [Diflucan] 100 mg tablet 100 mg PO DAILY Qty: 5 RF: 0 Continued albuterol sulfate 90 mcg/actuation HFA aerosol inhaler 2 puff INHALATION Q4H PRN PRN (Reason: sob/wheezing) 30 Days Qty: 9 RF: 0 lorazepam 0.5 mg tablet 0.25 mg PO DAILY PRN PRN (Reason: Anxiety) 5 Days Qty: 5 RF: 0 calcium carbonate 500 mg calcium (1,250 mg) Tablet,Chewable 500 mg PO BID PRN PRN (Reason: Heartburn) RF: 0 Discontinued cephalexin 500 mg capsule 500 mg PO Q6 Qty: 40 RF: 0 Referrals / Follow Up: Ankita Rosario NP, LO[employer] SERVICE OFFICER-C [Primary Care Provider] - In 1 Week Disposition Disposition (needs filled in before D/C Order can be placed): Home, Self Care Documented by User: Dr. Luis Elizondo DO 10/22/20 17:41 Providers Date of Admission: 10/16/20 Reason For Visit: CELLULITIS Medications at Discharge Home Medications albuterol sulfate 90 mcg/actuation aerosol inhaler 2 puff INHALATION Q4H PRN PRN 30 Days #9 08/08/17 lorazepam 0.5 mg tablet 0.25 mg PO DAILY PRN PRN 5 Days #5 08/08/17 calcium carbonate 500 mg PO BID PRN PRN 10/16/20 doxycycline hyclate 100 mg PO BID #14 cap 10/18/20 fluconazole [Diflucan] 100 mg PO DAILY #5 tab 10/18/20 metronidazole 500 mg PO TIDCM 7 Days #21 tab 10/18/20 ABG / Lab / Microbiology Data Result Diagrams: 10/17/20 06:03 10/16/20 09:30 Discharge Plan Admission Admit Date/Time: 10/16/20 14:00 Primary Reason for Your Visit: Right leg cellulitis Attending Provider: Luis Elizondo Primary Care Provider: Ankita Rosario NP Consulting Providers: Shree Morales Instructions Forms: Work / School Excuse Discharge Orders/Prescriptions Prescriptions: New metronidazole 500 mg Tablet 500 mg PO TIDCM 7 Days Qty: 21 RF: 0 doxycycline hyclate 100 mg capsule 100 mg PO BID Qty: 14 RF: 0 fluconazole [Diflucan] 100 mg tablet 100 mg PO DAILY Qty: 5 RF: 0 Continued albuterol sulfate 90 mcg/actuation HFA aerosol inhaler 2 puff INHALATION Q4H PRN PRN (Reason: sob/wheezing) 30 Days Qty: 9 RF: 0 lorazepam 0.5 mg tablet 0.25 mg PO DAILY PRN PRN (Reason: Anxiety) 5 Days Qty: 5 RF: 0 calcium carbonate 500 mg calcium (1,250 mg) Tablet,Chewable 500 mg PO BID PRN PRN (Reason: Heartburn) RF: 0 Discontinued cephalexin 500 mg capsule 500 mg PO Q6 Qty: 40 RF: 0 Referrals / Follow Up: Ankita Rosario NP, LOAN SERVICE OFFICER-C [Primary Care Provider] - In 1 Week Disposition Disposition (needs filled in before D/C Order can be placed): Home, Self Care Charges/Coding Addendum Addendum: Patient was seen and examined independently of Tasia Oliva on 10/18/2020, the final cultures on the patient's right leg wound have not resulted yet but the patient's cellulitis appears to be improved today, and talking with the patient, she understands the risk of going home without the final culture is being known but she is willing to go home on antibiotics and have us follow-up by phone if necessary to change any antibiotic coverage. On examination she appeared in good health and spirits, she does not appear to be in any distress. Vital signs as documented. Skin warm and dry and without overt rashes. Neck without JVD, thyroid appears normal, trachea is midline, neck is supple. Lungs clear, normal air movement was noted. Heart exam notable for regular rhythm, normal sounds and absence of murmurs, rubs or gallops. Abdomen unremarkable and without evidence of organomegaly, masses, or abdominal aortic enlargement, bowel sounds are present in all 4 quadrants, no abdominal tenderness was noted. Extremities-generalized erythema is noted over the right lower leg as described previously, there is also some mild edema over this area as described previously, no cyanosis was noted, no clubbing was noted. Neuro: Cranial nerves II through XII are grossly intact, no focal motor deficits were noted, sensation to light touch and pinprick is intact, motor exam 5/5 throughout. Psych: Patient is alert and oriented x3, she does not appear anxious or depressed, she does not appear agitated. Patient appears stable for discharge at this time, I have reviewed Tasia Laureano's discharge summary including her medical assessment and plan of care and endorse it. Visit Charges Inpatient E&M: [id number] Disch Hosp
[2020-10-18] MEDS: 0.9% Saline Lock 10 ML Syringe IV (11:44)
[2020-10-18 13:54] VITALS: BP 117/75; PULSE 74; RESP 18; TEMP 36.5; O2SAT 100
--- NOTE | 2020-10-18 13:56 | CASEMGMT ---
SW Note Referral Source: Case Management Reason for Referral: Patient wants advanced directives WILLIAM met with patient and her family. Educated patient on Advanced Directives. Patient's daughter said that she has friend who is a notary. Patient was advised that witnesses (2) can also witness signing of the Advanced Directives. No further needs or issues voiced at this time. SW will remain available. Provided Advanced Directive Information Gillian SINGH
== END 2020-10-18 14:14 | disposition home or self-care (01) | DRG 603 ==
LOC: ED 09:43 → MS3 10:59
PROVIDERS: Admitting Provider Internal Medicine; Emergency Provider Emergency Medicine; PCP Nurse Practitioner Family; Visit Provider Internal Medicine
DX: L03.115 Cellulitis of right lower limb (principal); L02.611 Cutaneous abscess of right foot; A49.01 Methicillin susceptible Staphylococcus aureus infection, unspecified site; F41.9 Anxiety disorder, unspecified; K21.9 Gastro-esophageal reflux disease without esophagitis; J45.20 Mild intermittent asthma, uncomplicated; F17.210 Nicotine dependence, cigarettes, uncomplicated
CPT/HCPCS: 36415; 80048; 85025; 87070; 87077; 87186; 87205; 87640; 94640; 99284; J7040; J7050; A4216

== ENCOUNTER 2021-05-30 10:27 | Outpatient (CLI) | payer BC, SELFPAY ==
[2021-05-30 11:42] LABS: Cholesterol 203 mg/dL (200); High Density Lipoprotein 51 mg/dL; Triglycerides 88 mg/dL; Very Low Density Lipoprotein 18 mg/dL (5-40)
== END 2021-05-30 23:59 | disposition home or self-care (01) ==
LOC: LAB 10:29
PROVIDERS: PCP Nurse Practitioner Family; Visit Provider Nurse Practitioner Family
DX: Z13.220 Encounter for screening for lipoid disorders (principal)
CPT/HCPCS: 36415; 80061

== ENCOUNTER 2021-07-03 09:51 | Outpatient (CLI) | payer BC, SELFPAY ==
--- NOTE | 2021-07-03 10:02 | US_ITS ---
STUDY: ULTRASOUND OF THE FEMALE PELVIS - COMPLETE REASON FOR EXAM: Female, 50 years old. Radiating pelvic pain and fullness LMP: 06/29/2021 TECHNIQUE: Transabdominal and Transvaginal TECHNICAL QUALITY: Adequate. COMPARISON: None. FINDINGS: The uterus is anteverted and is in a midline position. The uterus measures 7.5 x 4.7 x 3.5 cm. Normal uterine cervix. The endometrium measures 4.6 mm in thickness, and is hyperechoic. There is no demonstrated endometrial mass. There is a 1.6 in diameter fibroid. I.U.D. - The patient does not have an I.U.D. multiple nabothian cysts, largest measures 1.3 cm. The right ovary is visualized. The right ovary measures 2.2 x 2.3 x 1.6 cm. There is no right ovarian cyst or ovarian mass. There is no visualized right adnexal mass or complex lesion. There is normal arterial and normal venous vascularity. The left ovary is visualized. The left ovary measures 2.7 x 2.7 x 0.9 cm. There is no left ovarian cyst or ovarian mass. There is no visualized left adnexal mass or complex lesion. There is normal arterial and normal venous vascularity. There is no fluid in the cul-de-sac. The bladder is sonographically normal with estimated capacity of 483.8. US/Transvaginal Non- IMPRESSION: No suspicious sonographic findings, small uterine fibroid Electronically Signed: Heladio Hendrickson MD at 16:53 EDT ,
--- NOTE | 2021-07-03 10:02 | US_ITS ---
STUDY: ULTRASOUND OF THE FEMALE PELVIS - COMPLETE REASON FOR EXAM: Female, 50 years old. Radiating pelvic pain and fullness LMP: 06/29/2021 TECHNIQUE: Transabdominal and Transvaginal TECHNICAL QUALITY: Adequate. COMPARISON: None. FINDINGS: The uterus is anteverted and is in a midline position. The uterus measures 7.5 x 4.7 x 3.5 cm. Normal uterine cervix. The endometrium measures 4.6 mm in thickness, and is hyperechoic. There is no demonstrated endometrial mass. There is a 1.6 in diameter fibroid. I.U.D. - The patient does not have an I.U.D. multiple nabothian cysts, largest measures 1.3 cm. The right ovary is visualized. The right ovary measures 2.2 x 2.3 x 1.6 cm. There is no right ovarian cyst or ovarian mass. There is no visualized right adnexal mass or complex lesion. There is normal arterial and normal venous vascularity. The left ovary is visualized. The left ovary measures 2.7 x 2.7 x 0.9 cm. There is no left ovarian cyst or ovarian mass. There is no visualized left adnexal mass or complex lesion. There is normal arterial and normal venous vascularity. There is no fluid in the cul-de-sac. The bladder is sonographically normal with estimated capacity of 483.8. US/Pelvic (Non ) IMPRESSION: No suspicious sonographic findings, small uterine fibroid Electronically Signed: Heladio Hendrickson MD at 16:53 EDT ,
== END 2021-07-03 23:59 | disposition home or self-care (01) ==
LOC: US 09:53
PROVIDERS: PCP Nurse Practitioner Family; Visit Provider Nurse Practitioner Family
DX: R10.2 Pelvic and perineal pain (principal)
CPT/HCPCS: 76830; 76856